=== PATIENT | male | born 2000 | race Caucasian/White ===

== ENCOUNTER 2019-09-18 11:16 | Emergency (ER) | payer MEDICAID, OTHER ==
[~2019-09-18] VITALS: Ht 188 cm; Wt 84.1 kg
[2019-09-18 11:25] VITALS: BP 136/79
[2019-09-18] MEDS ORDERED: LIDOcaine 1% W/epiNEPHrine 1:200,000 10ml vial IJ ONE (12:30)
== END 2019-09-18 14:00 | disposition home or self-care (01) ==
LOC: ER 11:16
DX: S01.81XA Laceration without foreign body of other part of head, initial encounter (principal); X58.XXXA Exposure to other specified factors, initial encounter; Y93.89 Activity, other specified; Y92.89 Other specified places as the place of occurrence of the external cause; Y99.8 Other external cause status
CPT/HCPCS: 12011; 99282

== ENCOUNTER 2019-12-12 10:41 | Emergency (ER) | payer MEDICAID, OTHER ==
[~2019-12-12] VITALS: Ht 188 cm; Wt 75.0 kg
[2019-12-12] MEDS ORDERED: TETanus/Pertussis (Acell)/Diphther VAC/PF (Tdap-Adult) 0.5ml syringe IMVAC ONE (10:45)
[2019-12-12] MEDS ORDERED: LIDOcaine 1% W/epiNEPHrine 1:200,000 10ml vial IJ ONE (10:45)
[2019-12-12 12:33] VITALS: BP 130/70
== END 2019-12-12 12:35 | disposition home or self-care (01) ==
LOC: ER 10:41
DX: S61.412A Laceration without foreign body of left hand, initial encounter (principal); W26.0XXA Contact with knife, initial encounter; Y93.89 Activity, other specified; Y92.89 Other specified places as the place of occurrence of the external cause; Y99.8 Other external cause status
CPT/HCPCS: 12001; 90715; 99284